=== PATIENT | male | born 1975 | race Caucasian/White ===

== ENCOUNTER 2025-07-20 13:53 | Emergency (ER) | payer MEDICARE, MEDICAID | END 2025-07-20 15:20 | disposition home or self-care (01) | LOC: CSHERS 13:53 | DX: S51.852A Open bite of left forearm, initial encounter (principal); I10 Essential (primary) hypertension; Z86.73 Personal history of transient ischemic attack (TIA), and cerebral infarction without residual deficits; W54.0XXA Bitten by dog, initial encounter | CPT/HCPCS: 99283 ==